=== PATIENT | female | born 1990 | race Caucasian/White ===

== ENCOUNTER 2020-06-27 20:50 | Emergency (ER) | payer BC ==
[~2020-06-27] VITALS: Ht 162.6 cm; Wt 61.2 kg
== END 2020-06-27 21:40 | disposition home or self-care (01) ==
LOC: ER 21:19
DX: S80.862A Insect bite (nonvenomous), left lower leg, initial encounter (principal); E78.5 Hyperlipidemia, unspecified
CPT/HCPCS: 99282